=== PATIENT | female | born 1990 | race American Indian/Alaskan Native ===

== ENCOUNTER 2018-07-22 21:00 | Emergency (ER) | payer OTHER ==
[2018-07-22] MEDS ORDERED: NORCO 5/325 PO ONE (23:44)
--- NOTE | 2018-07-22 23:49 | Emergency Department Report ---
ED Female HPI - General Chief complaint: Urogenital-Female Stated complaint: POSS VAG CYST/INFECTION Time Seen by Provider: 07/22/18 23:27 Source: patient Mode of arrival: Ambulatory Limitations: No Limitations - History of Present Illness Initial comments: This is a 27-year-old female who presents to relieve complaining of right-sided Barre and cyst swelling and pain for the past week. She denies any bleeding from the area, patient denies any draining from the area. Patient states she is having once before about 4 months ago and was given antibiotics by today it came back. Location: labia Radiation: non-radiating Are you Now?: No - Related Data Previous Rx's Medication Instructions Recorded Last Taken Type Ibuprofen [Motrin] 800 mg PO Q8HR #30 tablet 07/23/18 Unknown Rx Sulfamethoxazole/Trimethoprim 1 each PO BID #20 tablet 07/23/18 Unknown Rx [Bactrim DS TAB] Allergies Allergy/AdvReac Type Severity Reaction Status Date / Time No Known Allergies Allergy Unverified 07/22/18 21:03 ED Review of Systems ROS: Stated complaint: POSS VAG CYST/INFECTION Other details as noted in HPI Comment: All other systems reviewed and negative ED Past Medical Hx - Social History Smoking Status: Never Smoker Substance Use Type: None - Medications Home Medications: Home Medications Medication Instructions Recorded Confirmed Last Taken Type Ibuprofen [Motrin] 800 mg PO Q8HR #30 tablet 07/23/18 Unknown Rx Sulfamethoxazole/Trimethoprim 1 each PO BID #20 tablet 07/23/18 Unknown Rx [Bactrim DS TAB] ED Physical Exam - General Limitations: No Limitations General appearance: alert, in no apparent distress - Head Head exam: Present: atraumatic, normocephalic - Eye Eye exam: Present: normal appearance - ENT ENT exam: Present: mucous membranes moist - Neck Neck exam: Present: normal inspection - Respiratory Respiratory exam: Present: normal lung sounds bilaterally. Absent: respiratory distress - Cardiovascular Cardiovascular Exam: Present: regular rate, normal rhythm. Absent: systolic murmur, diastolic murmur, rubs, gallop - GI/Abdominal GI/Abdominal exam: Present: soft, normal bowel sounds - External exam: Present: swelling (right lip), other (R bartholin gland swelling and tenderness to palpatation) Bi-manual exam: Present: normal bi-manual exam - Extremities Exam Extremities exam: Present: normal inspection - Back Exam Back exam: Present: normal inspection - Neurological Exam Neurological exam: Present: alert, oriented X3 - Psychiatric Psychiatric exam: Present: normal affect, normal mood - Skin Skin exam: Present: warm, dry, intact, normal color. Absent: rash ED Course Vital Signs 07/22/18 21:31 Temperature 98.6 F Pulse Rate 86 Respiratory 18 Rate Blood Pressure 103/51 O2 Sat by Pulse 100 Oximetry - I & D Right Vagina Type of Procedure: Simple Site: bartholin Blade Size: 11 I & D Procedure: betadine prep, sterile drapes applied Progress: Patient positioned appropriately, 6cc lidocaine without epinephrine was used as a local anesthetic. #11 blade scalpal used for single incision. Additional local anesthetic injected into surrounding viable tissue prior to blunt dissection of loculated adhesions. Copius drainage of pus . . Procedure tolerated without complications. Wound dressed with sterile 4x4 guaze and paper tape. Pt tolerated procedure well. ote ID ED Medical Decision Making - Medical Decision Making 27-year-old female presents with a Bartholin cyst Incision and drainage performed. Discussed with patient sits post procedure. Discussed the follow-up with [facility]. Patient tolerated procedure well. C-spine female. Vital signs are normal patient is in no acute distress Discussed follow-up Critical care attestation.: If time is entered above; I have spent that time in minutes in the direct care of this critically ill patient, excluding procedure time. ED Disposition Clinical Impression: Bartholin's cyst, Bartholin's gland abscess Disposition: - TO HOME OR SELFCARE Is pt being admited?: No Does the pt Need Aspirin: No Condition: Stable Instructions: Bartholin Cyst (ED), Incision and Drainage (ED), Sitz Bath (GEN) Additional Instructions: Make sure to follow up with the primary care physician as discussed. Take all your medications as you've been prescribed. If you have any worsening symptoms or develop new symptoms please return to ED immediately. Prescriptions: Sulfamethoxazole/Trimethoprim [Bactrim DS TAB] 1 each PO BID #20 tablet Ibuprofen [Motrin] 800 mg PO Q8HR #30 tablet Referrals: MAXI VÁZQUEZ MD [Primary Care Provider] - 3-5 Days [facility] [Outside] - 3-5 Days Forms: Accompanied Note, Work/School Release Form(ED) Time of Disposition: 00:20
[2018-07-23 01:35] VITALS: BP 107/57
== END 2018-07-23 01:35 | disposition home or self-care (01) ==
LOC: ED 21:00
DX: N75.1 Abscess of Bartholin's gland (principal)